=== PATIENT | female | born 1930 | race Caucasian/White ===

== ENCOUNTER 2016-08-14 13:49 | Emergency (ER) | payer MEDICARE, OTHER ==
[~2016-08-14 13:49] MED LIST: ASPIRIN CHEWABL81 MG PO; AZITHROMYCIN250 MG PO; CLARITIN10 MG PO; COREG12.5 MG PO; IMDUR 30MG TABL30 MG PO; K-DUR20 MEQ PO; LASIX20 MG PO; LEVAQUIN500 MG PO; NEURONTIN100 MG PO; OMEPRAZOLE 20MG20 MG PO; OMEPRAZOLE40 MG PO; PAXIL20 MG PO; PERCOCET 10/321 EACH PO; PLAVIX75 MG PO; PRINIVIL5 MG PO; PROAIR HFA8.5 GM INH; SINGULAIR10 MG PO; SPIRIVA 185 PUFFS/IN PO; ZOCOR40 MG PO; ZOFRAN4 MG PO
== END 2016-08-14 16:56 | disposition home or self-care (01) ==
LOC: FER 13:49
DX: M43.6 Torticollis (principal); I10 Essential (primary) hypertension; D64.9 Anemia, unspecified; J44.9 Chronic obstructive pulmonary disease, unspecified; G62.9 Polyneuropathy, unspecified; G89.29 Other chronic pain; M19.90 Unspecified osteoarthritis, unspecified site; Z88.5 Allergy status to narcotic agent; Z88.6 Allergy status to analgesic agent; Z79.891 Long term (current) use of opiate analgesic; Z79.02 Long term (current) use of antithrombotics/antiplatelets; Z79.899 Other long term (current) drug therapy
CPT/HCPCS: 72050; 99283

== ENCOUNTER 2017-01-27 12:52 | Emergency (ER) | payer MEDICARE, OTHER ==
[2017-01-27 14:13] LABS: BASOPHIL 0.1 % (0-2); EOSINOPHIL 1.3 % (0-7); HCT 35.9 % (37.0-47.0); HGB 12.1 g/dl (12.5-16.0); LYMPHOCYTE 25.8 % (15-48); MCH 30.2 pg (25.0-31.0); MCHC 33.7 g/dL (32.0-36.0); MCV 89.5 fL (78.0-100.0); MONOCYTE 7.6 % (0-12); MPV 9.7 fL (6.0-9.5); NEUTROPHIL 65.2 % (41-80); PLT 211 K/uL (150-400); RBC 4.01 M/uL (4.20-5.40); RDW 13.3 % (11.5-14.0)
[2017-01-27 14:16] LABS: INR 1.07 (0.9-1.2); PTT 27.1 SECONDS (24.3-32.1)
[2017-01-27 14:17] LABS: WBC 13.5 K/uL (4.0-10.5)
[2017-01-27 14:34] LABS: ALBUMIN 2.7 g/dL (3.4-4.8); BILIRUBIN - TOTAL 0.2 mg/dL (0.1-1.0); CREATININE 1.7 mg/dL (0.5-1.0); GLOBULIN (CALCULATION) 1.8 g/dL (2.2-4.2); MAGNESIUM 1.29 mg/dL (1.40-2.10); TOTAL PROTEIN 4.5 g/dL (6.4-8.3)
[2017-01-27 14:35] LABS: CKMB 3.45 ng/mL (0.97-4.94); MYOGLOBIN 88 ng/mL (26-65); TROPONIN T < 0.010 ng/mL
[2017-01-27 14:59] LABS: PRO-BNP 847 pg/mL (0-450)
[2017-01-27 15:04] LABS: BILIRUBIN NEGATIVE (NEGATIVE); BLOOD 2+ Ery/uL (NEGATIVE); CLARITY CLEAR (CLEAR); COLOR YELLOW (YELLOW); GLUCOSE (U) NORMAL (NORMAL); KETONE (U) NEGATIVE (NEGATIVE); LEUKOCYTES NEGATIVE Leu/uL (NEGATIVE); NITRITE NEGATIVE (NEGATIVE); PROTEIN TRACE (LOW) mg/dL (NEGATIVE); UROBILINOGEN 0.2 mg/dL (0.2-1.0)
[2017-01-27 15:11] LABS: AMORPHOUS URATES CRYSTALS MODERATE; BACTERIA TRACE; MUCOUS MODERATE
== END 2017-01-27 16:22 | disposition home or self-care (01) ==
LOC: FER 12:52
PROVIDERS: Emergency Medicine; Internal Medicine
DX: R07.89 Other chest pain (principal); R06.02 Shortness of breath; I10 Essential (primary) hypertension; E78.5 Hyperlipidemia, unspecified; J44.9 Chronic obstructive pulmonary disease, unspecified; Z95.1 Presence of aortocoronary bypass graft; Z88.8 Allergy status to other drugs, medicaments and biological substances; Z79.82 Long term (current) use of aspirin; Z79.899 Other long term (current) drug therapy
CPT/HCPCS: 36415; 71010; 80053; 81001; 82550; 82553; 83735; 83874; 83880; 84484; 85025; 85610; 85730; 93005

== ENCOUNTER 2020-05-06 02:34 | Inpatient (IN) | payer MEDICARE, OTHER ==
[~2020-05-06 02:34] MED LIST changes: +ALDACTONE25 MG PO; +AMIODARONE HCL200 MG PO; +ATARAX25 MG PO; +ATIVAN1 MG PO; +BACLOFEN 10MG T10 MG PO; +CYMBALTA 30MG C30 MG PO; +DULERA 100 MCG8.8 GM INH; +DURAGESIC1 EAC2 TD; +FOLIC ACID1 MG PO; +FUROSEMIDE 20MG20 MG PO; +LASIX40 MG PO; +MEDROL 4MG DOSEP4 MG PO; +MEGACE ORA6 TSP/1 OZ PO; +MELATONIN10 M2 PO; -NEURONTIN100 MG PO; +NEURONTIN300 MG PO; +NEURONTIN400 MG PO; +NORCO 5-325 TA1 EACH PO; +PERCOCET 10-321 EACH PO; -PERCOCET 10/321 EACH PO; +PREDNISONE5 MG PO; +PRILOSEC20 MG PO; +PROVENTIL HFA6.7 GM INH; +UROCIT-K10 MEQ PO; +ZESTRIL5 MG PO; +ZOFRAN8 MG PO
[2020-05-06 03:33] LABS: BILIRUBIN NEGATIVE (NEGATIVE); BLOOD NEGATIVE Ery/uL (NEGATIVE); CLARITY CLEAR (CLEAR); COLOR YELLOW (YELLOW); GLUCOSE (U) NORMAL (NORMAL); LEUKOCYTES NEGATIVE Leu/uL (NEGATIVE); NITRITE NEGATIVE (NEGATIVE); PROTEIN NEGATIVE (NEGATIVE); UROBILINOGEN 0.2 mg/dL (0.2-1.0)
[2020-05-06 04:15] LABS: BASOPHIL 0.2 % (0-2); EOSINOPHIL 1.9 % (0-7); HCT 30.6 % (37.0-47.0); HGB 9.6 g/dl (12.5-16.0); LYMPHOCYTE 51.7 % (15-48); MCH 27.7 pg (25.0-31.0); MCHC 31.4 g/dL (32.0-36.0); MCV 88.4 fL (78.0-100.0); MONOCYTE 11.7 % (0-12); MPV 9.4 fL (6.0-9.5); NEUTROPHIL 33.5 % (41-80); NRBC 0; PLT 264 K/uL (150-400); RBC 3.46 M/uL (4.20-5.40); RDW 14.7 % (11.5-14.0); WBC 5.9 K/uL (4.0-10.5)
[2020-05-06 04:32] LABS: ALBUMIN 2.5 g/dL (3.4-5.0); BILIRUBIN - TOTAL 0.2 mg/dL (0.2-1.0); BUN/CREAT RATIO (CALC) 15.2 RATIO; CREATININE 1.05 mg/dL (0.51-0.95); GLOBULIN (CALCULATION) 3.1 g/dL; POTASSIUM 3.3 mmol/L (3.5-5.1); TOTAL PROTEIN 5.6 g/dL (6.4-8.2)
[2020-05-06] MEDS ORDERED: MEDROL4 MG PO (11:36)
[2020-05-06] MEDS ORDERED: BUSPAR5 MG PO (11:37)
[2020-05-06] MEDS ORDERED: NITROQUIK SL0.4 MG SL (11:38)
[2020-05-06 12:52] LABS: HCT 37.7 % (37.0-47.0); HGB 11.5 g/dl (12.5-16.0); MCH 28.4 pg (25.0-31.0); MCHC 30.5 g/dL (32.0-36.0); MCV 93.1 fL (78.0-100.0); MPV 10.3 fL (6.0-9.5); RBC 4.05 M/uL (4.20-5.40); RDW 14.9 % (11.5-14.0); RETICULOCYTE COUNT 2.2 % (1.0-2.0); WBC 6.6 K/uL (4.0-10.5)
[2020-05-06 13:02] LABS: IRON % SATURATION 19.9 %SAT (20-50)
[2020-05-06 13:28] LABS: CREATININE 0.92 mg/dL (0.51-0.95); FOLIC ACID (SERUM) 4.7 ng/mL (8.6-58.9); MAGNESIUM 1.4 mg/dL (1.8-2.4); POTASSIUM 3.1 mmol/L (3.5-5.1)
--- NOTE | 2020-05-06 18:14 | NUR ---
PT LIVES WITH DAUGHTER; REPORTS SHE IS AN ASSIST WITH [employer] ; SHE HAS A W/C AHD WALKER SHE SAYS SHE HAS HOME HEALTH UNSURE WHICH ONE
--- NOTE | 2020-05-07 16:02 | NUR ---
05/07/2020 Ms. Millan lives with her daughter, Ann Godwin. She is followed by [facility] . [facility] was notified of admission via [facility]. Pt has a transfer w/c, rw, 3in1, and built-in- shower seat. [facility] at [phone] if patient is discharged over the holiday or weekend.
[2020-05-08 04:03] LABS: BASOPHIL 0.2 % (0-2); EOSINOPHIL 1.6 % (0-7); HCT 30.6 % (37.0-47.0); HGB 9.6 g/dl (12.5-16.0); LYMPHOCYTE 50.9 % (15-48); MCH 27.6 pg (25.0-31.0); MCHC 31.4 g/dL (32.0-36.0); MCV 87.9 fL (78.0-100.0); MONOCYTE 9.8 % (0-12); MPV 9.8 fL (6.0-9.5); NEUTROPHIL 36.6 % (41-80); NRBC 0; PLT 257 K/uL (150-400); RBC 3.48 M/uL (4.20-5.40); RDW 15.2 % (11.5-14.0); WBC 4.5 K/uL (4.0-10.5)
[2020-05-08 04:47] LABS: ALBUMIN 2.2 g/dL (3.4-5.0); BILIRUBIN - TOTAL 0.3 mg/dL (0.2-1.0); BUN/CREAT RATIO (CALC) 12.5 RATIO; CREATININE 0.8 mg/dL (0.51-0.95); GLOBULIN (CALCULATION) 2.8 g/dL; MAGNESIUM 2.7 mg/dL (1.8-2.4); PHOSPHORUS 2.5 mg/dL (2.6-4.7); POTASSIUM 3.8 mmol/L (3.5-5.1)
--- NOTE | 2020-05-08 10:40 | NUR ---
PATIENT WAS TAKEN DOWN FOR UPPER GI BY RADIOLOGY, UPON ARRIVAL BACK TO FLOOR. RADIOLOGY STATED THAT THE PATIENT WAS LAID DOWN AND STARTED TO YELLING AND STATING TO STOP, SHE WASN'T DOING IT. UPPER GI WAS NOT COMPLETED.
[2020-05-09 03:41] LABS: BASOPHIL 0.2 % (0-2); EOSINOPHIL 2.8 % (0-7); HCT 29.2 % (37.0-47.0); HGB 9.4 g/dl (12.5-16.0); LYMPHOCYTE 51.4 % (15-48); MCH 28.4 pg (25.0-31.0); MCHC 32.2 g/dL (32.0-36.0); MCV 88.2 fL (78.0-100.0); MONOCYTE 11.4 % (0-12); MPV 9.7 fL (6.0-9.5); NEUTROPHIL 33.3 % (41-80); NRBC 0; PLT 235 K/uL (150-400); RBC 3.31 M/uL (4.20-5.40); RDW 15.6 % (11.5-14.0); WBC 4.6 K/uL (4.0-10.5)
[2020-05-09 03:58] LABS: ALBUMIN 2.2 g/dL (3.4-5.0); BILIRUBIN - TOTAL 0.3 mg/dL (0.2-1.0); BUN/CREAT RATIO (CALC) 8.8 RATIO; CREATININE 0.8 mg/dL (0.51-0.95); GLOBULIN (CALCULATION) 2.9 g/dL; PHOSPHORUS 1.5 mg/dL (2.6-4.7); POTASSIUM 3.8 mmol/L (3.5-5.1); TOTAL PROTEIN 5.1 g/dL (6.4-8.2)
[2020-05-09 04:00] LABS: MAGNESIUM 1.8 mg/dL (1.8-2.4)
--- NOTE | 2020-05-09 13:23 | NUR ---
05/09/2020 A referral was received for a Hospice consult. Ann Godwin, daughter, wishes for patient to return home with [facility] and for Hospice to follow-up once patient returns home. Information was sent to Hospice with Ms. Godwin's permission with a plan for Hospice to call the home on 05/13/2019. Please call [facility] at [phone] when patient is discharged.
[2020-05-10 04:20] LABS: ALBUMIN 2.3 g/dL (3.4-5.0); BILIRUBIN - TOTAL 0.3 mg/dL (0.2-1.0); BUN/CREAT RATIO (CALC) 6.7 RATIO; CREATININE 0.89 mg/dL (0.51-0.95); MAGNESIUM 2.1 mg/dL (1.8-2.4); PHOSPHORUS 2.9 mg/dL (2.6-4.7); TOTAL PROTEIN 5.3 g/dL (6.4-8.2)
[2020-05-10 04:35] LABS: BASOPHIL 0.4 % (0-2); EOSINOPHIL 4.3 % (0-7); HCT 32.5 % (37.0-47.0); HGB 9.9 g/dl (12.5-16.0); LYMPHOCYTE 43.1 % (15-48); MCHC 30.5 g/dL (32.0-36.0); MCV 92.1 fL (78.0-100.0); MONOCYTE 11.3 % (0-12); MPV 10.2 fL (6.0-9.5); NEUTROPHIL 39.4 % (41-80); NRBC 0; PLT 237 K/uL (150-400); RBC 3.53 M/uL (4.20-5.40); RDW 16.3 % (11.5-14.0); WBC 4.7 K/uL (4.0-10.5)
[2020-05-11 03:55] LABS: HCT 30.8 % (37.0-47.0); MCH 28.7 pg (25.0-31.0); MCHC 32.5 g/dL (32.0-36.0); MCV 88.3 fL (78.0-100.0); MPV 9.7 fL (6.0-9.5); RBC 3.49 M/uL (4.20-5.40); RDW 16.1 % (11.5-14.0); WBC 5.3 K/uL (4.0-10.5)
[2020-05-11 04:10] LABS: BUN/CREAT RATIO (CALC) 6.8 RATIO; CREATININE 0.73 mg/dL (0.51-0.95); POTASSIUM 3.7 mmol/L (3.5-5.1)
[2020-05-11] MEDS ORDERED: HOSPITAL BED XX (14:03)
[2020-05-11] MEDS ORDERED: CLONAZEPAM0.25 MG PO ×2 (17:41→17:43)
[2020-05-11] MEDS ORDERED: DURAGESIC1 EAC2 TD (17:41)
[2020-05-11] MEDS ORDERED: OXYCODONE HCL10 MG PO (17:41)
== END 2020-05-11 21:45 | disposition home health service (06) | DRG 393 ==
LOC: FER 02:34 → FMS 08:12
PROVIDERS: Emergency Medicine; Nurse Practitioner Family; ADMIT Internal Medicine
PROC: 8E0ZXY6 Isolation (ICD-10-PCS; principal; 2020-05-06)
DX: K55.039 Acute (reversible) ischemia of large intestine, extent unspecified (principal); U07.1 COVID-19; I21.A1 Myocardial infarction type 2; I50.30 Unspecified diastolic (congestive) heart failure; F03.90 Unspecified dementia, unspecified severity, without behavioral disturbance, psychotic disturbance, mood disturbance, and anxiety; E86.0 Dehydration; G89.4 Chronic pain syndrome; I11.0 Hypertensive heart disease with heart failure; J44.9 Chronic obstructive pulmonary disease, unspecified; F41.9 Anxiety disorder, unspecified; F32.9 Major depressive disorder, single episode, unspecified; I25.10 Atherosclerotic heart disease of native coronary artery without angina pectoris; M19.90 Unspecified osteoarthritis, unspecified site; F41.0 Panic disorder [episodic paroxysmal anxiety]; E53.8 Deficiency of other specified B group vitamins; K57.30 Diverticulosis of large intestine without perforation or abscess without bleeding; R19.7 Diarrhea, unspecified; K44.9 Diaphragmatic hernia without obstruction or gangrene; I45.10 Unspecified right bundle-branch block; E83.42 Hypomagnesemia; E83.39 Other disorders of phosphorus metabolism; D50.9 Iron deficiency anemia, unspecified; Z95.1 Presence of aortocoronary bypass graft; Z88.8 Allergy status to other drugs, medicaments and biological substances; Z79.82 Long term (current) use of aspirin; Z79.899 Other long term (current) drug therapy
CPT/HCPCS: 36415; 71045; 72193; 80048; 80053; 81003; 82607; 82746; 83540; 83550; 83605; 83690; 83735; 83880; 84100; 84145; 84484; 85025; 87045; 87046; 87205; 87449; 93005; 94010; J0360; J1170; J1630; J1650; J2270; J2405; J2543; J2916; J3360; J3370; J3475; J3480; J7030; J7040; J7050; J7120; J7509; Q9967; U0002